=== PATIENT | male | born 1970 | race Caucasian/White ===

== ENCOUNTER 2019-04-10 18:49 | Emergency (ER) | payer SELFPAY ==
[~2019-04-10] VITALS: Ht 167.6 cm; Wt 89.7 kg
--- NOTE | 2019-04-10 18:54 | ED.ADGEN ---
Adult General Chief Complaint Chief Complaint ".. I ve not felt right since .. nausea, epigastric pain.. some diarrhea.. I started taking pepto bismal.... " HPI HPI Patient is a 48 year old male who presents with above hx and complaints of abdomen pain. Pain is localizes in Epigastric and Rt. upper quadrant. Pt. rates pain as severe. Pt. patient denies any specific ill contacts . No recent travel or trauma. . No specific history of intake bad food. Patient normally healthy. Patient does smoke. Has been taking pepto bismal and Aleve. Patient has noticed dark stools since he started taking Pepto-Bismol. Patient denies previous history of gastritis or ulcers. Does have occasionally have esophageal reflux. No history of trauma. Does not normally follow with primary care. Patient states symptoms started on which he felt was a viral infection or gastroenteritis. No history of gallbladder disease. Has been eating. Review of Systems Review of Systems Constitutional: Denies fever or chills [] Eyes: Denies change in visual acuity, redness, or eye pain [] HENT: Denies nasal congestion or sore throat [] Respiratory: Denies cough or shortness of breath [] Cardiovascular: No additional information not addressed in HPI [] GI: Complaints of severe of right upper quadrant and epigastric abdominal pain, nausea, vomiting, and diarrhea [] : Denies dysuria or hematuria [] Musculoskeletal: Denies back pain or joint pain [] Integument: Denies rash or skin lesions [] Neurologic: Denies headache, focal weakness or sensory changes [] Endocrine: Denies polyuria or polydipsia [] All other systems were reviewed and found to be within normal limits, except as documented in this note. Family History Family History Noncontributory Current Medications Current Medications Current Medications Medications (Trade) Dose Ordered Sig/Dorene Start Time Stop Time Status Last Admin Dose Admin Ceftriaxone Sodium 1 gm/ Sodium Chloride 50 ml @ 100 mls/hr 1X ONCE 04/10/19 20:30 04/10/19 20:59 DC 04/10/19 20:50 100 MLS/HR Ceftriaxone Sodium (Rocephin) 1 gm STK-MED ONCE 04/10/19 20:42 04/10/19 20:43 DC Fentanyl Citrate (Fentanyl 2ml Vial) 100 mcg 1X ONCE 04/10/19 22:30 04/10/19 22:31 DC 04/10/19 22:20 100 MCG Hydromorphone HCl (Dilaudid) 4 mg 1X ONCE 04/10/19 22:15 04/10/19 22:16 DC 04/10/19 22:03 4 MG Iohexol (Omnipaque 240 Mg/ml) 30 ml 1X ONCE 04/10/19 20:45 04/10/19 20:46 DC 04/10/19 22:20 30 ML Iohexol (Omnipaque 300 Mg/ml) 75 ml 1X ONCE 04/10/19 20:45 04/10/19 20:46 DC 04/10/19 22:20 75 ML Lactated Ringer's 1,000 ml @ 1,000 mls/hr Q1H 04/10/19 19:11 04/10/19 20:10 DC 04/10/19 19:56 1,000 MLS/HR Lidocaine HCl 20 ml STK-MED ONCE 04/10/19 23:00 04/10/19 23:01 DC Metronidazole 100 ml @ 100 mls/hr 1X ONCE 04/10/19 20:30 04/10/19 21:29 DC 04/10/19 22:34 100 MLS/HR Morphine Sulfate (Morphine 10mg Syringe) 10 mg 1X ONCE 04/11/19 01:00 04/11/19 01:01 DC 04/11/19 01:24 10 MG Ondansetron HCl (Zofran) 8 mg 1X ONCE 04/10/19 19:30 04/10/19 19:31 DC 04/10/19 19:48 8 MG Pantoprazole Sodium (Protonix Vial) 40 mg 1X ONCE 04/10/19 19:30 04/10/19 19:31 DC 04/10/19 19:47 40 MG Sodium Chloride 1,000 ml @ 1,000 mls/hr 1X ONCE 04/11/19 01:30 04/11/19 02:29 04/11/19 01:26 1,000 MLS/HR Allergies Allergies Allergies Coded Allergies Type Severity Reaction Last Updated Verified No Known Drug Allergies 04/10/19 No Physical Exam Physical Exam Constitutional: Well developed, well nourished, in acute distress, non-toxic appearance. [] HENT: Normocephalic, atraumatic, bilateral external ears normal, oropharynx dry no oral exudates, nose normal. [] Eyes: PERRLA, EOMI, conjunctiva normal, no discharge. [] Neck: Normal range of motion, no tenderness, supple, no stridor. [] Cardiovascular:Bradycardia Heart rate regular rhythm, no murmur [] Lungs & Thorax: Bilateral breath sounds equal at apexes with few scattered wheezes on auscultation [] Abdomen: Bowel sounds hyperactive, soft, upper quadrant and epigastric tenderness, no masses, no pulsatile masses. []Patient declines rectal exam at this time. No penile discharge. Rebound to right upper quadrant. ( unable to produce stool during ED stay) Skin: Warm, dry, no erythema, no rash. [] Back: No tenderness, no CVA tenderness. [] Extremities: No tenderness, no cyanosis, no clubbing, ROM intact, no edema. [] No true psoas sign. Neurologic: Alert and oriented X 3, normal motor function, normal sensory function, no focal deficits noted. [] Psychologic: Affect anxious, judgement normal, mood normal. [] Current Patient Data Vital Signs Vital Signs Date Time Temp Pulse Resp B/P (MAP) Pulse Ox O2 Delivery O2 Flow Rate FiO2 04/11/19 01:24 20 96 Room Air 04/10/19 23:47 76 156/82 (106) 04/10/19 19:04 97.3 Lab Results Laboratory Tests Test 04/10/19 19:05 04/10/19 19:10 White Blood Count 16.8 x10^3/uL (4.0-11.0) H Red Blood Count 5.49 x10^6/uL (4.30-5.70) Hemoglobin 17.3 g/dL (13.0-17.5) Hematocrit 49.9 % (39.0-53.0) Mean Corpuscular Volume 91 fL (79-100) Mean Corpuscular Hemoglobin 31 pg (25-35) Mean Corpuscular Hemoglobin Concent 35 g/dL (31-37) Red Cell Distribution Width 13.9 % (11.5-14.5) Platelet Count 355 x10^3/uL (140-400) Neutrophils (%) (Auto) 62 % (31-73) Lymphocytes (%) (Auto) 26 % (24-48) Monocytes (%) (Auto) 12 % (0-9) H Eosinophils (%) (Auto) 0 % (0-3) Basophils (%) (Auto) 0 % (0-3) Neutrophils # (Auto) 10.3 x10^3uL (1.8-7.7) H Lymphocytes # (Auto) 4.4 x10^3/uL (1.0-4.8) Monocytes # (Auto) 2.0 x10^3/uL (0.0-1.1) H Eosinophils # (Auto) 0.0 x10^3/uL (0.0-0.7) Basophils # (Auto) 0.1 x10^3/uL (0.0-0.2) Segmented Neutrophils % 64 % (35-66) Lymphocytes % 26 % (24-48) Monocytes % 10 % (0-10) Platelet Estimate Adequate (ADEQUATE) Anisocytosis Slight Prothrombin Time 10.6 SEC (9.4-11.4) Prothrombin Time INR 1.1 (0.9-1.1) PTT 24 SEC (23-33) Sodium Level 139 mmol/L (136-145) Potassium Level 3.7 mmol/L (3.5-5.1) Chloride Level 101 mmol/L (98-107) Carbon Dioxide Level 24 mmol/L (21-32) Anion Gap 14 (6-14) Blood Urea Nitrogen 21 mg/dL (8-26) Creatinine 1.4 mg/dL (0.7-1.3) H Estimated GFR (Cockcroft-Gault) 53.9 Glucose Level 110 mg/dL (70-99) H Calcium Level 9.9 mg/dL (8.5-10.1) Total Bilirubin 1.1 mg/dL (0.2-1.0) H Direct Bilirubin 0.2 mg/dL (0.0-0.2) Aspartate Amino Transferase (AST) 18 U/L (15-37) Alanine Aminotransferase (ALT) 28 U/L (16-63) Alkaline Phosphatase 90 U/L (46-116) Creatine Kinase 193 U/L (39-308) Troponin I Quantitative < 0.017 ng/mL (0-0.055) Total Protein 8.5 g/dL (6.4-8.2) H Albumin 4.7 g/dL (3.4-5.0) Amylase Level 45 U/L (25-115) Lipase 147 U/L (73-393) Urine Collection Type Unknown Urine Color Yellow Urine Clarity Cloudy Urine pH 5.0 Urine Specific [place] >=1.030 Urine Protein 30 mg/dl (NEG-TRACE) Urine Glucose (UA) Neg mg/dL (NEG) Urine Ketones (Stick) 40 mg/dL (NEG) Urine Blood Trace (NEG) Urine Nitrite Pos (NEG) Urine Bilirubin Neg (NEG) Urine Urobilinogen Dipstick 0.2 mg/dL (0.2 mg/dL) Urine Leukocyte Esterase Mod (NEG) Urine RBC Occ /HPF (0-2) Urine WBC 5-10 /HPF (0-4) Urine Squamous Epithelial Cells Mod /LPF Urine Bacteria Mod /HPF (0-FEW) Urine Hyaline Casts Occ /HPF Urine Opiates Screen Neg (NEG) Urine Methadone Screen Neg (NEG) Urine Barbiturates Neg (NEG) Urine Phencyclidine Screen Neg (NEG) Urine Amphetamine/Methamphetamine Neg (NEG) Urine Benzodiazepines Screen Neg (NEG) Urine Cocaine Screen Neg (NEG) Urine Cannabinoids Screen Pos (NEG) Urine Ethyl Alcohol Neg (NEG) EKG EKG I interpretation of EKG shows a sinus rhythm at 64 bpm. No findings acute STEMI of contralateral changes. Does have baseline artifact. Radiology/Procedures Radiology/Procedures My Interpretation acute abdomen shows no acute cardiopulmonary findings. No free air in the diaphragm. Nonspecific bowel gas pattern[ CT pending. ][place] [address] IMAGING REPORT Signed PATIENT: KYLE FOY ACCOUNT: [id number] : 1970 LOCATION: ER AGE: 48 SEX: M EXAM STATUS: REG ER ORD. PHYSICIAN: MORRIS HUGO MD REASON: Epigastric pain, nausea, vomiting x 3 days PROCEDURE: CT ABD PELV W/ORAL&IV CONTRAST CT ABD PELV W/ORAL IV CONTRAST Indication: Epigastric pain, nausea and vomiting for 3 days Technique: Postcontrast CT imaging was performed of the abdomen pelvis, multiplanar reconstruction images submitted. Oral contrast was also given. One or more of the following individualized dose reduction techniques were utilized for this examination: 1. Automated exposure control 2. Adjustment of the mA and/or kV according to patient size 3. Use of iterative reconstruction technique. Comparison: None Findings: There is extraluminal oral contrast seen about the liver more laterally on the right and also in the gallbladder fossa and some extent near the tien hepatis. There is only oral contrast in the stomach and small bowel, not in the colon during exam. Some extraluminal contrast extends near hepatic flexure. There is relative wall thickening of the descending duodenum at which there is some pooling of contrast and probably tract of contrast extending through the lateral wall of the duodenum on the right as seen on coronal images 30-32 series 3. There is a probable small duodenal diverticulum. Bowel is not significantly dilated. There is no significant free air. There is minimal free fluid in the pelvis, density measurements greater than simple fluid about 23 Hounsfield units. There is sigmoid diverticulosis. There is nonspecific relative wall thickening of the visualized distal esophagus. No focal abnormality is identified of the pancreas, spleen, liver. Both kidneys enhance, no hydronephrosis. There is a hypodense lesion of the medial mid left kidney about 2.1 cm, density measurements suggestive of cyst 16 Hounsfield units as measured on coronal images. There is also smaller hypodense lesion more laterally of the left lobe of liver about 1.2 cm with density measurements of a cyst 3 Hounsfield units. There are also a couple of small hypodense foci of the right kidney difficult to accurately characterize given small size on the order of 0.5 cm. There are some prostate calcifications. There is fat in the inguinal canals bilaterally somewhat greater on the right, no internal bowel. There is incomplete fusion of posterior elements at S1. There is multilevel degenerative disc disease of visualized inferior thoracic spine, also of the lumbar spine greatest at L4-5. IMPRESSION: 1. There is extraluminal oral contrast extending about the liver, some extent near the hepatic flexure as well as gallbladder fossa. Given concentration of contrast in stomach and proximal small bowel, perforation at level of the descending duodenum is considered most likely at which there is wall thickening as may be seen with duodenitis. There is mild somewhat complex appearing free fluid in the pelvis. 2. There is relative wall thickening of the visualized distal esophagus, could be seen with esophagitis. 3. There are likely cysts of the left kidney, some smaller hypodense focus of right kidney too small to accurately characterize. FOR INTERNAL CODING PURPOSES Critical result: Findings discussed with MORRIS HUGO at 04/10/2019 10:52 PM. RESULT CODE: (C) Electronically signed by: Hardy Rich MD (04/10/2019 10:56 PM) [facility] DICTATED AND SIGNED BY: HARDY RICH MD DATE: 04/10/19 3151 CC: MORRIS HUGO MD; PCP,NO ~ Course & Med Decision Making Course & Med Decision Making Pertinent Labs and Imaging studies reviewed. (See chart for details) Discussed presentation, testing and tx. plan with Dr. Sharma and Dr. Rojas. Dr. Rojas will accept pt PMC and Dr. Sharma with surgery consult. [] Final Impression Final Impression 1. Abdomen Pain[]-Proximal small bowel perforation-suspect duodenal 2. UTI 3. Tobacco and Marijuana use. 4. Renal Cysts 5. Leukocytosis 16.8 6. Bili 1.1 7. Recent Hx of gastroenteritis N/V/Diarrhea- Dragon Disclaimer Dragon Disclaimer This electronic medical record was generated, in whole or in part, using a voice recognition dictation system. MORRIS HUGO MD Apr 10, 2019 18:54
[2019-04-10] MEDS ORDERED: IV RINGERS SOLUTION,LACTATED 1,000 ML IV SCH (19:11)
[2019-04-10] MEDS ORDERED: ONDANSETRON PF 4 MG/2 ML VIAL. IV ONE (19:30)
[2019-04-10] MEDS ORDERED: PANTOPRAZOLE IV 40 MG VIAL. IVP ONE (19:30)
[2019-04-10 19:40] LABS: BARBITURATES NEG (NEG); BENZODIAZEPINES NEG (NEG); CANNABINOIDS POS (NEG); COCAINE NEG (NEG); METHADONE NEG (NEG); OPIATES NEG (NEG); PHENCYCLIDINE NEG (NEG)
[2019-04-10 19:41] LABS: AMPHETAMINE/METHAMPHETAMINE NEG (NEG)
[2019-04-10 19:41] LABS: BASO # 0.1 x10^3/uL (0.0-0.2); BASO % 0 % (0-3); EOS % 0 % (0-3); HEMATOCRIT 49.9 % (39.0-53.0); HEMOGLOBIN 17.3 g/dL (13.0-17.5); LYMPH # 4.4 x10^3/uL (1.0-4.8); LYMPH % 26 % (24-48); MEAN CORPUSCULAR HEMOGLOBIN 31 pg (25-35); MEAN CORPUSCULAR HGB CONC 35 g/dL (31-37); MEAN CORPUSCULAR VOLUME 91 fL (79-100); MONO % 12 % (0-9); NEUT # 10.3 x10^3uL (1.8-7.7); NEUT % 62 % (31-73); PLATELET COUNT 355 x10^3/uL (140-400); RED BLOOD COUNT 5.49 x10^6/uL (4.30-5.70); RED CELL DISTRIBUTION WIDTH 13.9 % (11.5-14.5); WHITE BLOOD COUNT 16.8 x10^3/uL (4.0-11.0)
[2019-04-10] MEDS ORDERED: MORPHINE SULFATE 10 MG/ML SYRINGE. SQ ONE ×2 (19:45→20:45)
[2019-04-10 19:48] LABS: BILIRUBIN,URINE NEG (NEG); CLARITY,URINE CLOUDY; COLOR,URINE YELLOW; GLUCOSE,URINE NEG (NEG); NITRITE,URINE POS (NEG); RBC,URINE OCC /HPF (0-2); UROBILINOGEN,URINE 0.2 mg/dL (0.2 mg/dL)
[2019-04-10 19:49] LABS: BACTERIA,URINE MOD /HPF (0-FEW); HYALINE CASTS, URINE OCC /HPF; SQUAMOUS EPITHELIAL CELL,UR MOD /LPF
[2019-04-10 19:53] LABS: ALBUMIN 4.7 g/dL (3.4-5.0); CALCIUM 9.9 mg/dL (8.5-10.1); CREATININE 1.4 mg/dL (0.7-1.3); DIRECT BILIRUBIN 0.2 mg/dL (0.0-0.2); GFR 53.9; POTASSIUM 3.7 mmol/L (3.5-5.1); TOTAL BILIRUBIN 1.1 mg/dL (0.2-1.0); TOTAL PROTEIN 8.5 g/dL (6.4-8.2)
[2019-04-10] MEDS ORDERED: IV NORMAL SALINE 50ML 50 ML ONE (20:42)
[2019-04-10] MEDS ORDERED: cefTRIAXone SODIUM 1 GM VIAL ONE (20:42)
[2019-04-10] MEDS ORDERED: IOHEXOL 300 MG/ML 75 ML VIAL. IV ONE (20:45)
[2019-04-10] MEDS ORDERED: IOHEXOL 240 MG/ML 50ML VIAL. PO ONE (20:45)
[2019-04-10] MEDS ORDERED: HYDROmorphone PF 2 MG/ML VIAL ONE (21:47)
[2019-04-10 21:52] LABS: % LYMPHS 26 % (24-48); % MONOS 10 % (0-10); % SEGS 64 % (35-66); PLT ESTIMATE ADEQUATE (ADEQUATE)
[2019-04-10 21:53] LABS: ANISOCYTOSIS SLIGHT
[2019-04-10] MEDS ORDERED: HYDROmorphone PF 1 MG/ML DISP.SYRIN SQ ONE (22:00)
[2019-04-10] MEDS ORDERED: HYDROmorphone PF 2 MG/ML VIAL SQ ONE (22:15)
--- NOTE | 2019-04-10 22:58 | RAD ---
CT ABD PELV W/ORAL IV CONTRAST Indication: Epigastric pain, nausea and vomiting for 3 days Technique: Postcontrast CT imaging was performed of the abdomen pelvis, multiplanar reconstruction images submitted. Oral contrast was also given. One or more of the following individualized dose reduction techniques were utilized for this examination: 1. Automated exposure control 2. Adjustment of the mA and/or kV according to patient size 3. Use of iterative reconstruction technique. Comparison: None Findings: There is extraluminal oral contrast seen about the liver more laterally on the right and also in the gallbladder fossa and some extent near the tien hepatis. There is only oral contrast in the stomach and small bowel, not in the colon during exam. Some extraluminal contrast extends near hepatic flexure. There is relative wall thickening of the descending duodenum at which there is some pooling of contrast and probably tract of contrast extending through the lateral wall of the duodenum on the right as seen on coronal images 30-32 series 3. There is a probable small duodenal diverticulum. Bowel is not significantly dilated. There is no significant free air. There is minimal free fluid in the pelvis, density measurements greater than simple fluid about 23 Hounsfield units. There is sigmoid diverticulosis. There is nonspecific relative wall thickening of the visualized distal esophagus. No focal abnormality is identified of the pancreas, spleen, liver. Both kidneys enhance, no hydronephrosis. There is a hypodense lesion of the medial mid left kidney about 2.1 cm, density measurements suggestive of cyst 16 Hounsfield units as measured on coronal images. There is also smaller hypodense lesion more laterally of the left lobe of liver about 1.2 cm with density measurements of a cyst 3 Hounsfield units. There are also a couple of small hypodense foci of the right kidney difficult to accurately characterize given small size on the order of 0.5 cm. There are some prostate calcifications. There is fat in the inguinal canals bilaterally somewhat greater on the right, no internal bowel. There is incomplete fusion of posterior elements at S1. There is multilevel degenerative disc disease of visualized inferior thoracic spine, also of the lumbar spine greatest at L4-5. IMPRESSION: 1. There is extraluminal oral contrast extending about the liver, some extent near the hepatic flexure as well as gallbladder fossa. Given concentration of contrast in stomach and proximal small bowel, perforation at level of the descending duodenum is considered most likely at which there is wall thickening as may be seen with duodenitis. There is mild somewhat complex appearing free fluid in the pelvis. 2. There is relative wall thickening of the visualized distal esophagus, could be seen with esophagitis. 3. There are likely cysts of the left kidney, some smaller hypodense focus of right kidney too small to accurately characterize. FOR INTERNAL CODING PURPOSES Critical result: Findings discussed with MORRIS HUGO at 04/10/2019 10:52 PM. RESULT CODE: (C) Electronically signed by: Yonathan Rich MD (04/10/2019 10:56 PM) [facility]
[2019-04-10] MEDS ORDERED: LIDOCAINE 2% 20 ML VIAL. ONE (23:00)
--- NOTE | 2019-04-10 23:31 | RAD ---
PORTABLE CHEST 1V History: Nasogastric tube placement Comparison: CT earlier the same day Findings: Single view of the chest is submitted. Tip of enteric catheter courses into the stomach with side port likely just beyond the gastroesophageal junction. Bowel is not considered significantly dilated. Impression: 1. Tip of enteric catheter courses into the stomach. Electronically signed by: Yonathan Rich MD (04/10/2019 11:28 PM) [facility]
--- NOTE | 2019-04-10 23:33 | RAD ---
ACUTE ABDOMEN SERIES History: Upper abdominal pain and low chest pain Comparison: None. Findings: Single view of the chest and single supine and upright views of abdomen are submitted. There is no lobar consolidation, pleural fluid, pneumothorax. Bowel is not significantly dilated. No significant free air is identified. Impression: 1. There is a nonobstructive bowel gas pattern. Electronically signed by: Yonathan Rich MD (04/10/2019 11:30 PM) [facility]
[2019-04-11] MEDS ORDERED: MORPHINE SULFATE 10 MG/ML SYRINGE. IV ONE (01:00)
[2019-04-11 01:17] VITALS: BP 156/86
[2019-04-11] MEDS ORDERED: IV NORMAL SALINE 1,000ML 1,000 ML IV ONE (01:30)
--- NOTE | 2019-04-13 07:40 | EKG ---
[address] [address] Test Date: 2019-04-10 Test Time: 19:25:32 Pat Name: KYLE FOY Department: Room: Gender: M [employer] Developer: : 1970 Requested By: MORRIS HUGO Order Number: [id number] Reading MD: Measurements Intervals [place] Rate: 64 P: -24 CA: 120 QRS: 54 QRSD: 80 T: 31 QT: 418 QTc: 435 Interpretive Statements SINUS RHYTHM NORMAL ECG RI6.01 No previous ECG available for comparison
--- NOTE | 2019-04-13 07:41 | EKG ---
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
== END 2019-04-11 01:32 | disposition short-term general hospital (02) ==
LOC: ER 18:49
DX: K63.1 Perforation of intestine (nontraumatic) (principal); N39.0 Urinary tract infection, site not specified; N28.1 Cyst of kidney, acquired; D72.829 Elevated white blood cell count, unspecified; R19.7 Diarrhea, unspecified; F12.10 Cannabis abuse, uncomplicated; Z72.0 Tobacco use
CPT/HCPCS: 36415; 43762; 71045; 74022; 74177; 80048; 80076; 80307; 81001; 82150; 82550; 83690; 84484; 85007; 85025; 85610; 85730; 87086; 96361; 96365; 96372; 96375; 99285; C9113; J0696; J1170; J2270; J2405; J3010; J3490; J7120; Q9966; Q9967; J7030